=== PATIENT | female | born 1995 | race African-American/Black ===

== ENCOUNTER 2022-08-30 19:10 | Inpatient (IN) ==
[2022-08-30] MEDS ORDERED: TRANEXAMIC ACID 1,000 MG in SODIUM CHLORIDE 0.9% 100 ML IV PRN (19:21)
[2022-08-30] MEDS ORDERED: ONDANSETRON 4 MG/2 ML VIAL IV PRN (19:21)
[2022-08-30] MEDS ORDERED: METHYLERGONOVINE 0.2 MG/1 ML AMP IM PRN (19:21)
[2022-08-30] MEDS ORDERED: MEPERIDINE 50 MG/1 ML VIAL IV PRN (19:21)
[2022-08-30] MEDS ORDERED: miSOPROStoL 200 MCG TABLET RECTAL PRN (19:21)
[2022-08-30] MEDS ORDERED: OXYTOCIN/LR 20 UNIT/1,000 ML BAG IV ONE (19:21)
[2022-08-30] MEDS ORDERED: BUTORPHANOL 2 MG/ML VIAL IV PRN (19:21)
[2022-08-30] MEDS ORDERED: CARBOPROST TROMETHAMINE 250 MCG/ML AMP IM PRN (19:21)
[2022-08-30] MEDS: LACTATED RINGERS 1,000 ML IV SCH (19:30)
[2022-08-30 19:57] LABS: Basophils % 0.3 % (0.0-0.8); Eosinophils % 0.1 % (0.00-10.9); Hematocrit 38.6 VOL% (35.7-47.0); Hemoglobin 12.8 GM/DL (12.0-16.0); Immature Granulocytes % 1.2 %; Immature Granulocytes Absolute 0.17 #; Lymphocytes # 2.1 10*3/uL (1.4-4.0); Lymphocytes % 15.3 % (21.3-54.2); Mean Corpuscular HGB Conc 33.2 GM/DL (32-36); Mean Corpuscular Volume 89.8 FL (87-102); Mean Platelet Volume 9.9 FL (9.6-12.0); Monocytes # 1.1 10*3/uL (0.11-0.8); Monocytes % 8.3 % (1.7-12.7); Neutrophils % 74.8 % (38.7-73.9); Platelet Count 279 T/CUMM (130-400); Red Cell Distribution Width 13.9 % (9.3-17.3); White Blood Count 13.78 T/CUMM (4-12)
[2022-08-30 20:10] LABS: INR 0.9; PT Patient Result 10.1 SECS (10.1-12.1); Partial Thromboplastin Time 26.8 SECS (23.7-32.9)
[2022-08-30 20:26] LABS: Alanine Aminotransferase 16 U/L (13-56); Albumin 2.7 G/DL (3.4-5.0); Alkaline Phosphatase 144 U/L (45-117); Aspartate Amino Transferase 20 U/L (0-37); Bilirubin,Total < 0.39 MG/DL (0.20-1.00); Blood Urea Nitrogen 9 MG/DL (7-18); Calcium 9.1 MG/DL (8.5-10.1); Carbon Dioxide 17 MMOL/L (21-32); Chloride 108 MMOL/L (98-107); Glucose 120 MG/DL (74-106); Osmolality,Calculated 269.1 MOS/KG (273-304); Potassium 3.6 MMOL/L (3.5-5.1); Sodium 135 MMOL/L (136-145); Total Protein 6.9 G/DL (6.4-8.2)
[2022-08-30 20:37] LABS: Bacteria,Urine Occasional /HPF (Few); Mucus,Urine Occasional /LPF (Occasional); RBC,Urine 2 /HPF (0-4); Squamous Epithelial Cell,Urine Occasional /HPF (0-10)
[2022-08-30 20:38] LABS: Bilirubin,Urine Negative (Negative); Blood, Urine Small mg/dL (Negative); Glucose,Urine (UA) Negative (Negative); Ketones,Urine Negative (Negative); Nitrite,Urine Negative (Negative); Protein,Urine 100 mg/dL (Negative); Urine Appearance Clear (Clear); Urine Color Yellow (Yellow); Urine Specific Gravity 1.015 (1.001-1.035)
[2022-08-30 20:58] LABS: Bilirubin,Direct < 0.100 MG/DL (0.0-0.20); Uric Acid 5.4 MG/DL (2.6-6.0)
[2022-08-30 22:24] LABS: Protein/Creatinine Ratio,Urine 1.6 RATIO
[2022-08-31] MEDS: LACTATED RINGERS 1,000 ML IV SCH (07:58)
[2022-08-31] MEDS ORDERED: OXYTOCIN/LR 20 UNIT/1,000 ML BAG IV SCH (08:00)
[2022-08-31] MEDS ORDERED: amLODIPine 10 MG TABLET PO SCH (09:00)
[2022-08-31] MEDS ORDERED: ePHEDrine 50 MG/ML VIAL IV PRN (10:31)
[2022-08-31] MEDS ORDERED: hydrOXYzine HCL 25 MG/1 ML VIAL IM PRN (10:31)
[2022-08-31] MEDS ORDERED: PROMETHAZINE 25 MG/1 ML VIAL IM ONE (10:31)
[2022-08-31] MEDS ORDERED: FAMOTIDINE 20 MG/2 ML VIAL IV ONE (10:31)
[2022-08-31] MEDS ORDERED: LACTATED RINGERS 1,000 ML IV ONE (10:31)
[2022-08-31] MEDS ORDERED: NALOXONE 0.4 MG/ML VIAL IV PRN (10:31)
[2022-08-31] MEDS ORDERED: CITRIC ACID/SODIUM CITRATE 30 ML UDCUP PO ONE (10:31)
[2022-08-31] MEDS ORDERED: diphenhydrAMINE 50 MG/1 ML VIAL IV PRN ×2 (10:31)
[2022-08-31] MEDS ORDERED: fentaNYL 2 MCG/ROPIV 0.2% EPID 100 ML EPIDURAL SCH (11:00)
[2022-08-31] MEDS ORDERED: LACTATED RINGERS 1,000 ML IV SCH (11:00)
[2022-08-31 12:39] LABS: Bacteria,Urine Occasional /HPF (Few); Mucus,Urine Occasional /LPF (Occasional); RBC,Urine 1 /HPF (0-4); Squamous Epithelial Cell,Urine Occasional /HPF (0-10)
[2022-08-31 12:42] LABS: Urine Appearance Clear (Clear); Urine Color Yellow (Yellow); Urine Specific Gravity 1.025 (1.001-1.035)
[2022-08-31 12:43] LABS: Bilirubin,Urine Negative (Negative); Blood, Urine Trace mg/dL (Negative); Glucose,Urine (UA) Negative (Negative); Ketones,Urine Trace mg/dL (Negative); Nitrite,Urine Negative (Negative); Protein,Urine >=300 mg/dL (Negative)
[2022-08-31] MEDS ORDERED: miSOPROStoL 200 MCG TABLET ONE (12:54)
[2022-08-31] MEDS ORDERED: CARBOPROST TROMETHAMINE 250 MCG/ML AMP IM ONE (12:55)
[2022-08-31 13:49] LABS: Cord Arterial Blood HCO3 19.9 MMOL/L
[2022-08-31 13:52] LABS: Cord Venous Blood HCO3 21.2 MMOL/L; Cord Venous Blood PCO2 47.2 MMHG; Cord Venous Blood PO2 26.5
[2022-08-31] MEDS ORDERED: RHO(D) IMMUNE GLOBULIN 300 MCG SYRINGE IM ONE (17:19)
[2022-08-31] MEDS ORDERED: WITCH HAZEL PADS 100/JAR TOP PRN (17:19)
[2022-08-31] MEDS ORDERED: OXYTOCIN/LR 20 UNIT/1,000 ML BAG IV ONE (17:19)
[2022-08-31] MEDS ORDERED: oxyCODONE/ACETAMINOPHEN 5-325 MG TABLET PO PRN ×2 (17:19)
[2022-08-31] MEDS ORDERED: LANOLIN 50% CREAM 0.3 OZ TUBE TOP PRN (17:19)
[2022-08-31] MEDS ORDERED: ONDANSETRON 4 MG/2 ML VIAL IV PRN (17:19)
[2022-08-31] MEDS ORDERED: BISACODYL 10 MG SUPP RECTAL PRN (17:19)
[2022-08-31] MEDS ORDERED: BENZOCAINE 20%/MENTHOL 0.5% SPRAY 56 GM CAN TOP PRN (17:19)
[2022-08-31] MEDS ORDERED: DIPH/TET/ACEL PERT BOOSTER VACCINE 0.5 ML VIAL IM ONE (17:19)
[2022-08-31] MEDS ORDERED: HYDROCORTISONE 2.5% RECTAL CREAM 30 GM TUBE TOP PRN (17:19)
[2022-08-31] MEDS ORDERED: IBUPROFEN 800 MG TABLET PO PRN (17:19)
[2022-08-31] MEDS ORDERED: ACETAMINOPHEN 325 MG TABLET PO PRN (17:19)
[2022-08-31] MEDS ORDERED: MEASLES/MUMPS/RUBELLA VACCINE 0.5 ML VIAL SUBCUT ONE (17:19)
[2022-08-31] MEDS: DOCUSATE SODIUM 100 MG CAPSULE PO SCH (21:23)
[2022-09-01 06:18] LABS: Basophils # 0.1 10*3/uL (0.0-0.2); Basophils % 0.3 % (0.0-0.8); Eosinophils % 0.3 % (0.00-10.9); Hematocrit 35.2 VOL% (35.7-47.0); Hemoglobin 11.6 GM/DL (12.0-16.0); Immature Granulocytes % 1.2 %; Immature Granulocytes Absolute 0.19 #; Lymphocytes # 2.5 10*3/uL (1.4-4.0); Lymphocytes % 15.6 % (21.3-54.2); Mean Corpuscular Volume 90.7 FL (87-102); Mean Platelet Volume 10.4 FL (9.6-12.0); Monocytes # 1.3 10*3/uL (0.11-0.8); Monocytes % 7.9 % (1.7-12.7); Neutrophils % 74.7 % (38.7-73.9); Platelet Count 252 T/CUMM (130-400); Red Blood Count 3.88 MC/CUMM (3.8-5.5)
[2022-09-01] MEDS: DOCUSATE SODIUM 100 MG CAPSULE PO SCH ×2 (09:40→21:33)
[2022-09-02 07:23] VITALS: BP 131/87
[2022-09-02] MEDS: DOCUSATE SODIUM 100 MG CAPSULE PO SCH (09:43)
== END 2022-09-02 13:10 | disposition home or self-care (01) | DRG 807 ==
LOC: N.LDOUT 19:10 → N.LD 19:10 → N.OB 08-31 17:15
PROVIDERS: ADMIT Specialist; ATTEND Specialist